=== PATIENT | male | born 1950 | race Caucasian/White ===

== ENCOUNTER → 2022-07-06 | Outpatient (CLI) | payer MEDICARE, SELFPAY ==
--- NOTE | 2022-07-06 06:42 | MRI_ITS ---
EXAM: MR RIGHT LOWER EXTREMITY WITHOUT INTRAVENOUS CONTRAST, KNEE CLINICAL INDICATION: SPRAIN, OSTEOARTHRITIS TECHNIQUE: Multiplanar and multisequence MR images of the right knee without intravenous contrast. This report was created using [employer] report generation technology. COMPARISON: None. FINDINGS: BONES/JOINTS: Severe patellofemoral osteoarthrosis. Cruciate ligaments are intact. Degenerative subchondral cysts are identified involving the medial tibial plateau. No fracture. No abnormal bone marrow signal. No synovial hypertrophy. No intra-articular body. No meniscal tearing. EXTENSOR MECHANISM: Unremarkable. MEDIAL MENISCUS: Unremarkable. LATERAL MENISCUS: Unremarkable. MEDIAL CAPSULE/SUPPORTING STRUCTURES: Unremarkable. Intact. LATERAL CAPSULE/SUPPORTING STRUCTURES: Unremarkable. Lateral collateral ligamentous complex, inclusive of the popliteal tendon, are intact. ANTERIOR CRUCIATE LIGAMENT: Unremarkable. Intact. POSTERIOR CRUCIATE LIGAMENT: Unremarkable. Intact. MUSCLES: Unremarkable. CARTILAGE: Unremarkable. Intact. FLUID: Moderate to large joint effusion of the knee containing 2 intra-articular irregular calcific bodies, measuring 1.6 cm. One is located along the anterior aspect of the lateral femoral condyle and the other is located within the lateral aspect of the suprapatellar pouch. OTHER SOFT TISSUES: Subcutaneous edema anterior to the patellar tendon. Subcutaneous edema. No popliteal cyst. MRI/Lower Ext Joint Only (Routine) IMPRESSION: 1. Moderate to large joint effusion of the knee containing 2 intra-articular irregular calcific bodies, measuring 1.6 cm. One is located along the anterior aspect of the lateral femoral condyle and the other is located within the lateral aspect of the suprapatellar pouch. 2. Severe patellofemoral osteoarthrosis. Electronically Signed: Maximino Coughlin MD at 0:36 EST ,
== END | disposition home or self-care (01) ==
PROVIDERS: PCP Registered Nurse; Referring Provider Physician Assistant; Visit Provider Physician Assistant
DX: S83.8X1A Sprain of other specified parts of right knee, initial encounter (principal); M17.11 Unilateral primary osteoarthritis, right knee; X58.XXXA Exposure to other specified factors, initial encounter
CPT/HCPCS: 73721